=== PATIENT | male | born 1955 | race Caucasian/White ===

== ENCOUNTER 2018-02-18 22:10 | Observation (INO) | payer OTHER ==
[2018-02-18 22:15] VITALS: BMI 29.4
[2018-02-18] MEDS ORDERED: ASPIRIN 81 MG CHEWABLE TABLETS ONE ×2 (22:59→23:01)
[2018-02-18] MEDS ORDERED: ASPIRIN 325 MG ENTERIC COATED TABLET (FP) PO ONE (23:03)
--- NOTE | 2018-02-18 23:10 | PDOC ---
Attending Attestation - HPI HPI: This patient is a 62 year old male with PMHx of HTN, who presents with pleuritic chest pain since 6 pm today. Patient states that his left-sided chest pain began suddenly while at rest, worse with inhalation and radiates to left arm and back (feels dull and achy) when he inhales. He describes it as a burning sensation that has been waxing and waning throughout the day but still persists. He states that his chest pain was initially a 5/10 but is currently a 3/10. He states that he had a heart attack in 2015 in [place] and had a cardiac catheterization. He also reports an episode of blurry vision but states that is has resolved. He states that he took his (2 doses) lisinopril and metoprolol medication but is unsure why his blood pressure is still high right now. He denies diaphoresis. He denies nausea, vomitting. He denies it radiation to stomach. He denies recent travel. He denies h/o PE, DVT, unilateral leg swelling. Denies recent surgeries or period of immobilization. Allergies: NKDA Social Hx: denies smoking, social EtOH use. PCP: Dr. Jacob (in [place]) <Inge Melendrez - Last Filed: 02/18/18 23:35> - Resident Resident Name: Dave Teague - ED Attending Attestation I have performed the following: I have examined & evaluated the patient, The case was reviewed & discussed with the resident, I agree w/resident's findings & plan, Exceptions are as noted - Physicial Exam PE: 02/19/18 01:50 Patient is awake and alert, well-nourished, hypertensive, in mild distress Normocephalic and atraumatic PERRLA, EOMI No JVD CTA RRR; + mild parasternal tenderness to palpation is noted on the left Abdomen soft, nontender, nondistended No lower extremity edema Nonfocal neurologically; No rash - Medical Decision Making 02/19/18 01:51 Patient is 62-year-old male with history of hypertension, CAD (status post stenting in 2015), cocaine use presents to the ER with atraumatic, partially pleuritic left-sided chest pain radiating to the left arm and hypotension; EKG shows no evidence of acute ischemia, normal sign at the rate of 85 is noted. Differential diagnoses includes ACS versus PE versus aortic dissection. We'll consider patient's elevated blood pressure as hypertensive emergency given the chest pain with radiation to the back. Will treat with labetalol IV push. Will obtain CTA to rule out dissection. If no dissection is noted, we'll administer aspirin by mouth and will place on telemetry for observation and serial cardiac enzymes for ACS. <Deon Lemos - Last Filed: 02/19/18 02:16> Heart Score/ECG Review - History History: Moderately suspicious - Electrocardiogram EKG: Normal - Age Age: 45-65 - Risk Factors Risk Factors Heart Score: Yes Hx Hypercholesterolemia, Yes Hx Hypertension, Yes Hx Obesity Based on the list above the patient has:: >/=3 risk factors or Hx atherosclerotic disease - Troponin Troponin: </= normal limit - Score Heart Score - Total: 4 <Deon Lemos - Last Filed: 02/19/18 02:16>
[2018-02-18] MEDS ORDERED: ASPIRIN 325 MG ENTERIC COATED TABLET (FP) ONE (23:28)
[2018-02-18 23:33] LABS: BASO % 0.7 % (0-2.0); EOS % 3.4 % (0-4.5); HEMATOCRIT 40.8 % (35.4-49); HEMOGLOBIN 13.6 GM/dL (11.7-16.9); LYMPH % 31.8 % (8-40); MCH 30.9 pg (25.7-33.7); MCHC 33.4 g/dl (32.0-35.9); MEAN CELL VOLUME 92.5 fl (80-96); MEAN PLT VOLUME 8.2 fl (7.5-11.1); MONO % 9.8 % (3.8-10.2); NEUT % 54.3 % (42.8-82.8); PLATELET COUNT 309 K/MM3 (134-434); RBC 4.41 M/mm3 (4.00-5.60); RDW 13.6 % (11.9-15.9); WHITE BLOOD COUNT 11.5 K/mm3 (4.0-10.0)
[2018-02-18] MEDS ORDERED: LABETALOL HCL 5 MG/1 ML (100MG/20 ML VIAL) IVPUSH ONE (23:39)
[2018-02-18 23:57] LABS: ANION GAP 8 MMOL/L (8-16); BLOOD UREA NITROGEN 19 mg/dL (7-18); CALCIUM 8.6 mg/dL (8.5-10.1); CHLORIDE 105 mmol/L (98-107); CO2 28 mmol/L (21-32); CREATININE 1.2 mg/dL (0.55-1.3); GLUCOSE,RANDOM 103 mg/dL (74-106); POTASSIUM 4.3 mmol/L (3.5-5.1); SODIUM 141 mmol/L (136-145)
[2018-02-18] MEDS ORDERED: LABETALOL HCL 5 MG/1 ML (200MG/40ML VIAL) IVPB ONE ×4 (23:59)
[2018-02-19] MEDS ORDERED: LABETALOL HCL 5 MG/1 ML (100MG/20 ML VIAL) IVPUSH ONE ×2 (00:07→00:56)
--- NOTE | 2018-02-19 00:11 | PDOC ---
History of Present Illness - General Chief Complaint: Chest Pain Stated Complaint: CHEST PAIN Time Seen by Provider: 02/18/18 22:40 History Source: Patient, Family, Old Records Exam Limitations: No Limitations - History of Present Illness Initial Comments: 62 y/o male presenting to [facility] ER via private auto complaining of left sided pleuritic chest pain. Symptoms started spontaneously at approx. 12pm today (18 Feb 2018) while he was at rest. Pain is made worse by deep inspiration; rating 3 /10 upon arrival; radiated into left arm. He states the pain is similar to what he felt with his previous VT in 2014. He attributed the symptoms to hypertension and elected to take 1x metroprolol and 2x lisinopril doses. Pain fluctuate in intensity over the course of the afternoon. He took an additional 1x lisinopril dose at 19:00. Elected to present to the ER after symptoms failed to resolve. Denies recent travel, long periods of immobilization, recent surgery, or leg pain/swelling. Denies trauma to the area. Denies recent illness. H/o VT in 2014. Stent placed at hospital in [place]. ASA and Plavix were discontinued by his development disability specialist last year. Believes he had a normal Echo last year. PCP: Jose Guadalupe Patient Registration Specialist: Cecil Santiago Hx: - Denies ever smoking - Endorses occasional EtOH use, none in last 48 hrs - Denies street drug use Medical Hx: - HTN - CAD, VT 2014 with stent placement Surgical Hx: - Denies previous surgeries Past History - Past Medical History Allergies/Adverse Reactions: Allergies Allergy/AdvReac Type Severity Reaction Status Date / Time No Known Drug Allergies Allergy Verified 02/18/18 22:15 peanut Allergy Verified 02/18/18 22:15 FRUITS Allergy Uncoded 02/18/18 22:15 Home Medications: Ambulatory Orders Aspirin [ASA -] 81 mg PO DAILY 06/16/15 Clopidogrel Bisulfate [Plavix -] 75 mg PO DAILY 06/16/15 Lisinopril 10 mg PO DAILY 06/21/15 Metoprolol Tartrate [Lopressor -] 25 mg PO BID 02/19/18 Anemia: No Asthma: No Cancer: No Cardiac Disorders: Yes (1 STENT INSERTED 11/2014) CVA: No COPD: No CHF: No Dementia: No Diabetes: No GI Disorders: No Disorders: No HTN: Yes Hypercholesterolemia: Yes Liver Disease: No Seizures: No Thyroid Disease: No - Surgical History Cardiac Surgery: Yes (ANGIOPLASTY) - Suicide/Smoking/Psychosocial Hx Smoking History: Never smoked Hx Alcohol Use: No Drug/Substance Use Hx: No Substance Use Type: None Hx Substance Use Treatment: No Cardiac Specific PMH - Complaint Specific PMHX Pacemaker: No Review of Systems - Review of Systems Able to Perform ROS?: Yes Comments:: In addition to that documented in the HPI above, the additional ROS was obtained : Constitutional: Denies fevers or chills Eyes: Endorses resolved episode of blurry vision today ENMT: Denies sore throat CV: Per HPI Resp: Denies SOB GI: Denies vomiting or diarrhea : Denies painful urination MSK: Denies recent trauma Skin: Denies new rashes Neuro: Denies new numbness or tingling or weakness Endocrine: Denies bruising Heme: Denies bleeding disorders *Physical Exam - Vital Signs Last Vital Signs Temp Pulse Resp BP Pulse Ox 97.9 F 72 18 124/86 100 02/19/18 05:58 02/19/18 05:58 02/19/18 05:58 02/19/18 05:58 02/19/18 05:58 - Physical Exam Comments: Constitutional: Well-developed, well-nourished male in no acute distress or obvious discomfort. Found semi-fowlers in hospital bed. Alert and oriented x4. Answered all questions appropriately and completely. Speech was non-labored, non -pressured. HEENT: Normocephalic. No obvious external signs of trauma. Hearing grossly normal. No nasal discharge. Neck is supple, trachea is midline. No JVD. Cardiovascular: Regular rate and regular rhythm. No murmur, rubs, clicks, or gallops. Peripheral pulses: Radial pulses full and equal bilaterally. Respiratory: Breathing unlabored. Equal chest rise and fall. Clear to auscultation bilaterally. No stridor, no wheezing, no rhonchi. Gastrointestinal: abdomen is soft, non-tender, non-distended. Neuro: Alert and oriented. Moving all four extremities spontaneously. Skin/MSK: Warm, dry, and intact. No bruising, rashes, or other lesions. No obvious signs of trauma to chest or back. No subjective tenderness with direct palpation or active and passive range of motion with upper left extremity. Psych: Affect: appropriate. Mood: normal. ED Treatment Course - LABORATORY CBC & Chemistry Diagram: 02/18/18 23:26 02/18/18 23:26 - ADDITIONAL ORDERS Additional order review: Laboratory Results 02/19/18 02/19/18 02/19/18 06:00 03:40 03:40 PT with INR INR PTT (Actin FS) D-Dimer Sodium Potassium Chloride Carbon Dioxide Anion Gap BUN Creatinine Creat Clearance w eGFR Random Glucose Calcium Troponin I < 0.02 Opiates Screen Negative Methadone Screen Negative Barbiturate Screen Negative Phencyclidine Screen Negative Ur Amphetamines Screen Negative MDMA (Ecstasy) Screen Negative Benzodiazepines Screen Negative U Marijuana (THC) Screen Negative Blood Type O POSITIVE Antibody Screen 02/18/18 02/18/18 02/18/18 23:40 23:35 23:35 PT with INR 11.90 INR 1.01 PTT (Actin FS) 25.1 L D-Dimer 483 Sodium Potassium Chloride Carbon Dioxide Anion Gap BUN Creatinine Creat Clearance w eGFR Random Glucose Calcium Troponin I Opiates Screen Methadone Screen Barbiturate Screen Phencyclidine Screen Ur Amphetamines Screen MDMA (Ecstasy) Screen Benzodiazepines Screen U Marijuana (THC) Screen Blood Type O POSITIVE Antibody Screen Negative 02/18/18 23:26 PT with INR INR PTT (Actin FS) D-Dimer Sodium 141 Potassium 4.3 Chloride 105 Carbon Dioxide 28 Anion Gap 8 BUN 19 H Creatinine 1.2 Creat Clearance w eGFR > 60 Random Glucose 103 Calcium 8.6 Troponin I < 0.02 Opiates Screen Methadone Screen Barbiturate Screen Phencyclidine Screen Ur Amphetamines Screen MDMA (Ecstasy) Screen Benzodiazepines Screen U Marijuana (THC) Screen Blood Type Antibody Screen 02/18/18 23:26 RBC 4.41 MCV 92.5 MCHC 33.4 RDW 13.6 MPV 8.2 Neutrophils % 54.3 Lymphocytes % 31.8 Monocytes % 9.8 Eosinophils % 3.4 Basophils % 0.7 - RADIOLOGY Radiology Studies Ordered: Category Date Time Status ABDOMEN/PELVIS CTA W/WO CONTR [CT] Stat CT Scan 02/19/18 01:57 Taken CHEST CTA [CT] Stat CT Scan 02/18/18 23:37 Ordered CHEST PA & LAT [RAD] Stat Radiology 02/19/18 01:00 Ordered Radiograph Interpretation: CT angiogram the chest, abdomen and pelvis with and without contrast Triston Escobar MD wrote on Feb 19, 2018 at 03:22 AM: Referring Physician: BISHOP HARMON Patient Name: TEA GODINEZ THIS IS A PRELIMINARY REPORT FROM [facility] DATE OF SERVICE: 2018-02-19 01:57:53 IMAGES: [id number] EXAM: CT angiogram the chest, abdomen and pelvis with and without contrast HISTORY: Chest pain and hypertension COMPARISON: None. FINDINGS: CT angiogram chest:There is no PE or dissection. Heart size is normal. The trachea and bronchi are patent. There is no pleural or pericardial effusion. The lungs are clear. No fractures identified. CT angiogram abdomen and pelvis:Normal liver, gallbladder, pancreas, spleen, adrenal glands and kidneys. The stomach and abdominal small and large bowel are normal. There is no aortic dissection or aneurysm. There is no significant retroperitoneal lymphadenopathy. Minimal mesenteric panniculitis is likely an incidental finding. The pelvic small and large bowel are normal. The appendix is normal. The urinary bladder is normal. The prostate gland is mildly enlarged. No pelvic free fluid is identified. There is no significant pelvic lymphadenopathy. Tiny fat-containing bilateral inguinal hernias are noted. IMPRESSION: No evidence of acute pathology of the chest, abdomen or pelvis. Mild prostate enlargement. One or more of the following dose reduction techniques were used: automated exposure control, adjustment of the mA and/or kV according to patient size, use of iterative reconstructive technique. THIS DOCUMENT HAS BEEN ELECTRONICALLY SIGNED Alessio Escobar MD 02/19/2018 03:19 EST - Medications Given in the ED: ED Medications Discontinued Medications Generic Name Dose Route Start Last Admin Trade Name Coni PRN Reason Stop Dose Admin Aspirin 325 mg 02/18/18 23:03 02/18/18 23:03 Ecotrin - PO 02/18/18 23:04 325 mg ONCE ONE Administration Labetalol HCl 20 mg 02/18/18 23:39 02/19/18 00:00 Normodyne Injection - IVPUSH 02/18/18 23:40 20 mg ONCE ONE Administration Labetalol HCl 40 mg 02/19/18 00:07 02/19/18 00:26 Normodyne Injection - IVPUSH 02/19/18 00:08 40 mg ONCE ONE Administration Labetalol HCl 40 mg 02/19/18 00:56 02/19/18 01:36 Normodyne Injection - IVPUSH 02/19/18 00:57 40 mg ONCE ONE Administration Medical Decision Making - Medical Decision Making *Reviewed vital signs, nursing notes, and prior visit documentation (if available). 62 y/o male presenting with pleuritic, left sided chest pain with radiation to left arm and back x12 hours. States pain is similar to previous VT. Vitals remarkable for hypertension in setting of reported multiple doses of home antihypertensives over usual dose. Denies illicit drug use. D/D includes but not limited to ACS, PE, aortic dissection, pericardial effusion, pneumonia, esophageal rupture, MSK pain. Will obtain CBC, BMP, Troponin, EKG, Coags, T/S, D -dimer, CXR, CTA of chest, abdomen, and pelvis. Ordered ASA and labetalol. EKG revealed sinus rhythm with a ventricular rate of 85 bpm. Normal axis. Normal intervals. No ST segment elevation or depression. No hyperacute T-waves. 00:23 Pts daughter approached at desk and stated her father does in fact have a history of cocaine use. Believes it is possible he used it today. CTA unremarkable for dissection or PE. Initial troponin not elevated. Low suspicion for ACS. Will repeat EKG and troponin at 3 hour [id number]. Second troponin not elevated. HEART Score for Major Cardiac Events from [email or web address] on 02/19/2018 RESULT SUMMARY: 4 points Moderate Score (4-6 points) Risk of MACE of 12-16.6%. INPUTS: History > 1 = Moderately suspicious EKG > 0 = Normal Age > 1 = 45-64 Risk factors > 2 = ?3 risk factors or history of atherosclerotic disease Initial troponin > 0 = ?normal limit 04:47 Microblog sent to [facility] for admission for chest pain rule out and hypertensive urgency. Suspect symptoms are possibly related to cocaine intoxication. BP trend now 120s-130s systolic. States pain has almost resolved. 05:[address] Lennon and resident Dr. Romero. Will admit pt to telemetry on obs status. CXR and UDS pending. *DC/Admit/Observation/Transfer Diagnosis at time of Disposition: Hypertensive urgency Chest pain Qualifiers: Chest pain type: unspecified Qualified Code(s): R07.9 - Chest pain, unspecified - Discharge Dispostion Condition at time of disposition: Stable Decision to Admit order: Yes Decision to Admit order Date/Time: Decision to Admit Order Category Date Time Status Decision to Admit to Hospital Routine Admission 02/19/18 04:46 Active - Referrals - Patient Instructions - Post Discharge Activity
[2018-02-19 00:14] LABS: INR 1.01 (0.83-1.09); PROTHROMBIN TIME (PATIENT) 11.9 SEC (9.7-13.0)
[2018-02-19 00:17] LABS: ACTIVATED PTT 25.1 SECONDS (25.2-36.5)
--- NOTE | 2018-02-19 05:44 | PN ---
Teaching Attending Note Name of Resident: Heather Michaels ATTENDING PHYSICIAN STATEMENT I saw and evaluated the patient. I reviewed the resident's note and discussed the case with the resident. I agree with the resident's findings and plan as documented. SUBJECTIVE: Patient is a 62 year old man with PMH of HTN, CAD, acute DC in 2014 (got a stent in [place]) presenting with left sided chest pressure that started around noon today while at rest. Pain radiates to the back and left shoulder and made worse by deep breath. No SOB or diaphoresis. His daughter says he took cocaine the day before. He states the pain is similar to what he felt with his previous DC in 2014. He attributed the symptoms to hypertension and elected to take 1x metroprolol and 2x lisinopril doses. Pain fluctuates in intensity over the course of the afternoon. He took an additional 1x lisinopril dose at 19:00. Elected to present to the ER after symptoms failed to resolve. Denies recent travel, long periods of immobilization, recent surgery, or leg pain/swelling. Denies trauma to the area. Denies recent illness. Says ASA and Plavix were discontinued by his medical scheduler last year because of "ecchymosis". He professes compliance with his antihypertensive medications. Says he has gained a lot of weight recently. He is unemployed, lives alone and has 3 adult children. Nonsmoker. On arrival in the ER his systolic BP was >235 and he got 3 doses of IV labetalol. His BP has normalized and he is now pain free. OBJECTIVE: Alert Vital Signs Period Temp Pulse Resp BP Sys/Castro Pulse Ox Last 24 Hr 97.5 F 71-87 18-23 133-206/69-105 99-100 HEENT: No Jaundice, eye redness or discharge, PERRLA, EOMI. Normocephalic, atraumatic. External ears are normal and hearing is grossly intact. No nasal discharge. Neck: Supple, nontender. No palpable adenopathy or thyromegaly. No JVD Chest: Good effort. Clear to auscultation and percussion. Heart: Regular. No S3, rub or murmur Abdomen: Not distended, soft, nontender and no HSM. No rebound or guarding. Normoactive bowel sounds. Ext: Peripheral pulses intact. No leg edema. Skin: Warm and dry. No petechiae, rash or ecchymosis. Neuro: Alert. Oriented x3. CN 2-12 grossly intact. Sensation grossly intact in all four extremities and DTR are symmetric. Home Medications Medication Instructions Recorded Aspirin [ASA -] 81 mg PO DAILY 06/16/15 Clopidogrel Bisulfate [Plavix -] 75 mg PO DAILY 06/16/15 Lisinopril 10 mg PO DAILY 06/21/15 Abnormal Lab Results 02/18/18 02/18/18 02/18/18 23:26 23:26 23:35 WBC 11.5 H PTT (Actin FS) 25.1 L BUN 19 H ASSESSMENT AND PLAN: 1. Chest pain and hypertensive urgency - No acute ST-T wave changes on EKG and CXR is pending. Initial troponin is negative. No evidence of aortic dissection on preliminary reading of abd/pelvic CT. In view of cocaine use and risk factors , will admit to telemetry to rule out ACS. Get ECHO, urine toxicology and restart home antihypertensive drugs. Patient counseled to stop using drugs. Consult medical scheduler to opine on the discontinuation of plavix/aspirin for his stent. Leukocytosis is likely reactive - CXR and UA are pending. 2. DVT prophylaxis - Lovenox 40 mg SQ q 24 hours. 3. Advance directives - Full code
--- NOTE | 2018-02-19 05:47 | HP ---
CHIEF COMPLAINT: Chest pain x 1 day PCP: Jose Guadalupe Art Director: Cecil HISTORY OF PRESENT ILLNESS: Pt is a 62 yo M with PMHx HTN, CAD s/p stent (2014) presenting with L sided chest pain at rest around midnight. Pain is worse with inspiration, radiating to back and L arm, associated with SOB. Pt reports it pain feels similar to previous chest pain when he had his last stent placement in [facility] in 2014. Pain was still present on arrival in the ED. At home, when he had the pain, he decided to take extra doses of his antihypertensive medication, 1x metroprolol and 2x lisinopril doses. With persistence of the pain, he took an additional 1x lisinopril dose at 19:00 after noting his BP to be elevated at 170s. Pt admits cocaine use in the past. Per ED sign out, Pt's daughter reported recent cocaine use the previous day. Patient reports taking multiple doses of lisinopril at his own discretion at home for BP control. Per pt, he was bruising from dual antiplatelets (ASA and Plavix ), so he was discontinued by his physician in the [facility]. Since being in the ED, the pain has since resolved. ER course was notable for: (1) ASA, negative tropsx 2, (2) EKG- 85bpm, NSR, , nl R wave progression, no KARL/STD, QTC-445, nl axis (3) CTA- negative for (4) Initial BP-206/105 (5) ASA, labetalol iv-100mg, Labetalol PO-600mg Recent Travel: PAST MEDICAL HISTORY: As in HPI PAST SURGICAL HISTORY: Cardiac Stent Social History: Smoking: Alcohol:Occasional Drugs: Cocaine Family History: Lives alone, has children Retired construction flagger Allergies No Known Drug Allergies Allergy (Verified 02/18/18 22:15) peanut Allergy (Verified 02/18/18 22:15) FRUITS Allergy (Uncoded 02/18/18 22:15) HOME MEDICATIONS: Home Medications Medication Instructions Recorded Aspirin [ASA -] 81 mg PO DAILY 06/16/15 Clopidogrel Bisulfate [Plavix -] 75 mg PO DAILY 06/16/15 Lisinopril 10 mg PO DAILY 06/21/15 REVIEW OF SYSTEMS CONSTITUTIONAL: Absent: fever, chills, diaphoresis, generalized weakness, malaise, loss of appetite, weight change HEENT: Absent: rhinorrhea, nasal congestion, throat pain, throat swelling, difficulty swallowing, mouth swelling, ear pain, eye pain, visual changes CARDIOVASCULAR: Absent: chest pain, syncope, palpitations, irregular heart rate, lightheadedness , peripheral edema RESPIRATORY: Absent: cough, shortness of breath, dyspnea with exertion, orthopnea, wheezing, stridor, hemoptysis GASTROINTESTINAL: Absent: abdominal pain, abdominal distension, nausea, vomiting, diarrhea, constipation, melena, hematochezia GENITOURINARY: Absent: dysuria, frequency, urgency, hesitancy, hematuria, flank pain, genital pain MUSCULOSKELETAL: Absent: myalgia, arthralgia, joint swelling, back pain, neck pain SKIN: Absent: rash, itching, pallor HEMATOLOGIC/IMMUNOLOGIC: Absent: easy bleeding, easy bruising, lymphadenopathy, frequent infections ENDOCRINE: Absent: unexplained weight gain, unexplained weight loss, heat intolerance, cold intolerance NEUROLOGIC: Absent: headache, focal weakness or paresthesias, dizziness, unsteady gait, seizure, mental status changes, bladder or bowel incontinence PSYCHIATRIC: Absent: anxiety, depression, suicidal or homicidal ideation, hallucinations. PHYSICAL EXAMINATION Vital Signs - 24 hr 02/18/18 02/18/18 02/18/18 22:12 22:59 23:18 Temperature 97.5 F L Pulse Rate 80 Pulse Rate [ 87 86 Left Apical] Respiratory 18 18 23 H Rate Blood Pressure 206/105 H Blood Pressure 203/91 H [Left Arm] Blood Pressure 191/86 H [Right Arm] O2 Sat by Pulse 100 99 99 Oximetry (%) 02/19/18 02/19/18 02/19/18 00:53 01:29 01:34 Temperature Pulse Rate Pulse Rate [ 74 71 77 Left Apical] Respiratory 18 Rate Blood Pressure Blood Pressure 143/76 142/71 133/69 [Left Arm] Blood Pressure [Right Arm] O2 Sat by Pulse 99 Oximetry (%) 02/19/18 01:40 Temperature Pulse Rate Pulse Rate [ 73 Left Apical] Respiratory Rate Blood Pressure Blood Pressure 135/71 [Left Arm] Blood Pressure [Right Arm] O2 Sat by Pulse Oximetry (%) GENERAL: Obese male, Awake, alert, and fully oriented, in no acute distress. HEAD: Normal with no signs of trauma. EYES: Pupils equal, round and reactive to light, extraocular movements intact, sclera anicteric, conjunctiva clear. EARS, NOSE, THROAT: Moist mucous membranes. NECK: Normal range of motion, supple LUNGS: Breath sounds equal, clear to auscultation bilaterally. No wheezes, and no crackles. HEART: Regular rate and rhythm, normal S1 and S2 without murmur, rub or gallop. ABDOMEN: Obese, Soft, nontender, not distended, normoactive bowel sounds, no guarding, no rebound, no masses. MUSCULOSKELETAL: Normal range of motion at all joints. No bony deformities or tenderness. No CVA tenderness. LOWER EXTREMITIES: 2+ pulses, warm, well-perfused. No calf tenderness. No peripheral edema. NEUROLOGICAL: Cranial nerves II-XII intact. Normal speech. Gait not observed CBC, BMP 02/18/18 23:26 02/18/18 23:26 Laboratory Results - last 24 hr 02/18/18 02/18/18 02/18/18 23:26 23:26 23:35 WBC 11.5 H RBC 4.41 Hgb 13.6 Hct 40.8 MCV 92.5 MCH 30.9 MCHC 33.4 RDW 13.6 Plt Count 309 MPV 8.2 Absolute Neuts (auto) 6.2 Neutrophils % 54.3 Lymphocytes % 31.8 Monocytes % 9.8 Eosinophils % 3.4 Basophils % 0.7 Nucleated RBC % 0 PT with INR INR PTT (Actin FS) D-Dimer 483 Sodium 141 Potassium 4.3 Chloride 105 Carbon Dioxide 28 Anion Gap 8 BUN 19 H Creatinine 1.2 Creat Clearance w eGFR > 60 Random Glucose 103 Calcium 8.6 Troponin I < 0.02 Blood Type Antibody Screen 02/18/18 02/18/18 02/19/18 23:35 23:40 03:40 WBC RBC Hgb Hct MCV MCH MCHC RDW Plt Count MPV Absolute Neuts (auto) Neutrophils % Lymphocytes % Monocytes % Eosinophils % Basophils % Nucleated RBC % PT with INR 11.90 INR 1.01 PTT (Actin FS) 25.1 L D-Dimer Sodium Potassium Chloride Carbon Dioxide Anion Gap BUN Creatinine Creat Clearance w eGFR Random Glucose Calcium Troponin I < 0.02 Blood Type O POSITIVE Antibody Screen Negative 02/19/18 03:40 WBC RBC Hgb Hct MCV MCH MCHC RDW Plt Count MPV Absolute Neuts (auto) Neutrophils % Lymphocytes % Monocytes % Eosinophils % Basophils % Nucleated RBC % PT with INR INR PTT (Actin FS) D-Dimer Sodium Potassium Chloride Carbon Dioxide Anion Gap BUN Creatinine Creat Clearance w eGFR Random Glucose Calcium Troponin I Blood Type O POSITIVE Antibody Screen Ambulatory Orders Aspirin [ASA -] 81 mg PO DAILY 06/16/15 Clopidogrel Bisulfate [Plavix -] 75 mg PO DAILY 06/16/15 Lisinopril 10 mg PO DAILY 06/21/15 Metoprolol Tartrate [Lopressor -] 25 mg PO BID 02/19/18 ASSESSMENT/PLAN: Pt is a 62 yo M with PMHx HTN, CAD s/p stent (2014) presenting with L sided chest pain at rest around midnight. Chest pain R/O ACS Previous [place], Hx of cocaine use,negative CTA for PE/ Dissection Trops negative x2, initial EKG, no evidence of ischemia Trend trop, repeat EKG ECHO CXR Cardio consult Tele obs Received ASA in ED Cont ASA daily, Hold metoprolol 25 bid (cocaine use), will continue labetolol (no orders in, monitor BP for hypotension) Resume lisinopril 10 daily when deemed fit by day team Utox Hypertensive Emergency Pt presented with BP-206/105, with chest pain Received multiple PO and iv medications Monitor BP- consider medication review for HTN appears poorly controlled at home Hold metoprolol 25 bid (cocaine use), will continue labetolol (no orders in, monitor BP for hypotension) Resume lisinopril 10 daily when deemed fit by day team CAD s/p stent (2014) Pt has been off antiplatelets unsure of duration Restart ASA, Pt education Hold metoprolol 25 bid (cocaine use), will continue labetolol (no orders in, monitor BP for hypotension) Resume lisinopril 10 daily when deemed fit by day team Lipid profile Statin Obesity Pt reports being off a diet Diet and exercise Leucocytosis Likely reactive CXR pending FEN No standing fluids Monitor lytes, replete as needed Low sodium diet PPx Lovenox sq Dispo: Tele Obs Visit type - Emergency Visit Emergency Visit: Yes ED Registration Date: 02/19/18 Care time: The patient presented to the Emergency Department on the above date and was hospitalized for further evaluation of their emergent condition. - New Patient This patient is new to me today: Yes Date on this admission: 02/19/18 - Critical Care Critical Care patient: No
[2018-02-19 06:37] LABS: METHADONE, UR NEGATIVE ng/ml (CUTOFF=300); OPIATES, URI NEGATIVE ng/ml (CUTOFF=300); PHENCYCLIDINE,URINE NEGATIVE ng/ml (CUTOFF=25); URINE AMPHETAMINES NEGATIVE ng/ml (CUTOFF=500); URINE BARBITURATES NEGATIVE ng/ml (CUTOFF=200); URINE BENZODIAZEPINES NEGATIVE ng/ml (CUTOFF=200)
[2018-02-19 07:06] LABS: COCAINE, UR POSITIVE ng/ml (CUTOFF=300)
--- NOTE | 2018-02-19 08:16 | PN ---
Teaching Attending Note Name of Resident: Aileen Fletcher ATTENDING PHYSICIAN STATEMENT I saw and evaluated the patient. I reviewed the resident's note and discussed the case with the resident. I agree with the resident's findings and plan as documented. SUBJECTIVE: Pt is a 62 yo M with PMHx HTN, CAD s/p stent (2014) presenting with L sided chest pain at rest around midnight last night. Patient is chest pain free now, admitted for using cocaine and developed chest pain. OBJECTIVE: Vital Signs Temperature 97.9 F 02/19/18 05:58 Pulse Rate 72 02/19/18 05:58 Respiratory Rate 18 02/19/18 05:58 Blood Pressure 124/86 02/19/18 05:58 O2 Sat by Pulse Oximetry (%) 100 02/19/18 05:58 GENERAL: Obese male, Awake, alert, and fully oriented, in no acute distress. HEAD: Normal with no signs of trauma. EYES: Pupils equal, round and reactive to light, EOMI , sclera anicteric, conjunctiva clear. EARS, NOSE, THROAT: Moist mucous membranes. NECK: Normal range of motion, supple LUNGS: Breath sounds equal, clear to auscultation bilaterally. No wheezes, and no crackles. HEART: Regular rate and rhythm, normal S1 and S2 without murmur, rub or gallop. ABDOMEN: Obese, Soft, nontender, ND, normoactive bowel sounds, no guarding, no rebound, no masses. EXTREMITIES: 2+ pulses, warm, well-perfused. No calf tenderness. No peripheral edema. NEUROLOGICAL: Cranial nerves II-XII intact. Normal speech. CBCD WBC 11.5 K/mm3 (4.0-10.0) H 02/18/18 23:26 RBC 4.41 M/mm3 (4.00-5.60) 02/18/18 23:26 Hgb 13.6 GM/dL (11.7-16.9) 02/18/18 23:26 Hct 40.8 % (35.4-49) 02/18/18 23:26 MCV 92.5 fl (80-96) 02/18/18 23:26 MCHC 33.4 g/dl (32.0-35.9) 02/18/18 23:26 RDW 13.6 % (11.9-15.9) 02/18/18 23:26 Plt Count 309 K/MM3 (134-434) 02/18/18 23:26 MPV 8.2 fl (7.5-11.1) 02/18/18 23:26 CMP Sodium 141 mmol/L (136-145) 02/18/18 23:26 Potassium 4.3 mmol/L (3.5-5.1) 02/18/18 23:26 Chloride 105 mmol/L (98-107) 02/18/18 23:26 Carbon Dioxide 28 mmol/L (21-32) 02/18/18 23:26 Anion Gap 8 MMOL/L (8-16) 02/18/18 23:26 BUN 19 mg/dL (7-18) H 02/18/18 23:26 Creatinine 1.2 mg/dL (0.55-1.3) 02/18/18 23:26 Creat Clearance w eGFR > 60 (>60) 02/18/18 23:26 Random Glucose 103 mg/dL (74-106) 02/18/18 23:26 Calcium 8.6 mg/dL (8.5-10.1) 02/18/18 23:26 CARDIAC ENZYMES Troponin I < 0.02 ng/ml (0.00-0.05) 02/19/18 06:20 Current Medications Generic Name Dose Route Start Last Admin Trade Name Cesarq PRN Reason Stop Dose Admin Aspirin 81 mg 02/19/18 10:00 Ecotrin - PO DAILY [facility] Atorvastatin Calcium 80 mg 02/19/18 22:00 Lipitor - PO HS [facility] Enoxaparin Sodium 40 mg 02/19/18 10:00 Lovenox - SQ DAILY [facility] Home Medications Medication Instructions Recorded Aspirin [ASA -] 81 mg PO DAILY 06/16/15 Clopidogrel Bisulfate [Plavix -] 75 mg PO DAILY 06/16/15 Lisinopril 10 mg PO DAILY 06/21/15 Metoprolol Tartrate [Lopressor -] 25 mg PO BID 02/19/18 Echocariogram and ECG were normal. ASSESSMENT AND PLAN: Patient is 62 yo Male HTN, with prior [place] in 2014 in [facility]. Patient has cocaine use and last used 2-3 days ago. Patient developed chest pain which exacerbated with deep inspiration without radiation. #acute chest pain , chest pain free now. Patient is cleared by cardiology. 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 As per cardio : chest pain is non-cardiac origin. Negative ECG, Echo and TABBY negative. No further cardiac testing is advised # CAD chronic post FL in 2015. Add ASA 81mg qd, Added Statin and given coccaine use would avoid beta priscila use. will add Norvasc 5mg po now. # HTN resume lisinopril and add norvasc 2.5mg daily. will discharge patient home.
[2018-02-19 08:20] LABS: EOS % 1.6 % (0-4.5); HEMOGLOBIN 12.8 GM/dL (11.7-16.9); MEAN PLT VOLUME 8.4 fl (7.5-11.1); PLATELET COUNT 288 K/MM3 (134-434); RDW 13.5 % (11.9-15.9)
[2018-02-19 08:22] LABS: BASO % 0.8 % (0-2.0); MCH 31.1 pg (25.7-33.7); MCHC 33.7 g/dl (32.0-35.9); MEAN CELL VOLUME 92.2 fl (80-96); MONO % 8.7 % (3.8-10.2); NEUT % 61.9 % (42.8-82.8); RBC 4.12 M/mm3 (4.00-5.60)
[2018-02-19 08:32] LABS: ALBUMIN 2.8 g/dl (3.4-5.0); ALK PHOS 74 U/L (45-117); ANION GAP 10 MMOL/L (8-16); BILIRUBIN,TOTAL 0.4 mg/dL (0.2-1); BLOOD UREA NITROGEN 14 mg/dL (7-18); CALCIUM 7.1 mg/dL (8.5-10.1); CHLORIDE 100 mmol/L (98-107); CHOLESTEROL 149 mg/dL (50-200); CO2 21 mmol/L (21-32); CREATININE 0.8 mg/dL (0.55-1.3); GLUCOSE,RANDOM 92 mg/dL (74-106); HDL CHOLESTEROL 38 mg/dL (40-60); MAGNESIUM 1.9 mg/dL (1.8-2.4); PHOSPHOROUS 2.5 mg/dL (2.5-4.9); POTASSIUM 4.1 mmol/L (3.5-5.1); SGOT/AST 23 U/L (15-37); SGPT/ALT 19 U/L (13-61); SODIUM 131 mmol/L (136-145); TOT PROT 5.9 g/dl (6.4-8.2); TRIGLYCERIDES 103 mg/dL (0-150)
[2018-02-19] MEDS ORDERED: ENOXAPARIN NA (PORCINE) 40 MG/0.4 ML DISP.SYRIN SQ ONE (09:45)
[2018-02-19] MEDS ORDERED: ASPIRIN 81 MG CHEWABLE TABLETS ONE (09:45)
[2018-02-19] MEDS ORDERED: ENOXAPARIN NA (PORCINE) 40 MG/0.4 ML DISP.SYRIN SQ SCH (10:00)
[2018-02-19] MEDS ORDERED: ASPIRIN COATED 81 MG TABLET.EC PO SCH (10:00)
--- NOTE | 2018-02-19 11:08 | EKG ---
Test Reason : Blood Pressure : / mmHG Vent. Rate : 085 BPM Atrial Rate : 085 BPM P-R Int : 184 ms QRS Dur : 094 ms QT Int : 374 ms P-R-T Axes : 014 001 010 degrees QTc Int : 445 ms NORMAL SINUS RHYTHM NORMAL ECG WHEN COMPARED WITH ECG OF 24-JUN-2005 10:32, NO SIGNIFICANT CHANGE WAS FOUND Confirmed by AUGUSTA PRICE MD ([id number]) on 02/19/2018 11:08:26 AM Referred By: Confirmed By:AUGUSTA PRICE MD
--- NOTE | 2018-02-19 11:47 | ECHO ---
Name: KAMINI RODRIGUEZ Exam:Adult Echocardiogram Study Date: 02/19/2018 08:26 AM Age: 62 yrs Reason For Study: Chest pain R/O ACS HX COCAINE USE STENT Height: 70 in Weight: 205 lb BSA: 2.1 m2 MMode/2D Measurements & Calculations IVSd: 0.93 cm Ao root diam: 3.1 cm LVIDd: 4.9 cm LA dimension: 3.4 cm LVIDs: 3.3 cm LVPWd: 0.94 cm EDV(Teich): 113.4 ml ESV(Teich): 43.7 ml Doppler Measurements & Calculations MV E max parvez: 70.6 cm/sec Ao V2 max: 132.8 cm/sec MV A max parvez: 97.7 cm/sec Ao max P.1 mmHg MV E/A: 0.72 MV dec time: 0.19 sec LV V1 max P.3 mmHg TR max parvez: 202.0 cm/sec LV V1 max: 103.7 cm/sec TR max P.3 mmHg Med Peak E' Parvez: 6.8 cm/sec Med E/e': 10.4 Lat Peak E' Parvez: 8.3 cm/sec Lat E/e': 8.5 Procedure A complete two-dimensional transthoracic echocardiogram was performed (2D, M-mode, Doppler and color flow Doppler). Left Ventricle The left ventricular size, thickness and function are normal. The left ventricular ejection fraction is normal. Ejection Fraction = 60-65%. The left ventricular wall motion is normal. Right Ventricle The right ventricle is normal in size and function. Atria Normal left and right atrial size and function. Mitral Valve There is trace mitral regurgitation. Tricuspid Valve No tricuspid regurgitation. There was insufficient TR detected to calculate RV systolic pressure. Aortic Valve The aortic valve is trileaflet. No hemodynamically significant valvular aortic stenosis. No aortic regurgitation is present. Pulmonic Valve There is no pulmonic valvular regurgitation. Great Vessels The aortic root is normal size. Pericardium/Pleura There is no pericardial effusion. Interpretation Summary The left ventricular size, thickness and function are normal The right ventricle is normal in size and function. There is trace mitral regurgitation. MD Perry Roberson 02/19/2018 11:47 AM
--- NOTE | 2018-02-19 15:49 | PN ---
Physical Exam: SUBJECTIVE: Patient seen and examined this morning. Patient reports taking his prescribed doses of Lisinopril 10mg and Metoprolol 25mg BID daily. For the past ~3 days, he has been having elevated BPs at home, approx. 170/90 and he has been using 40 mg Lisinopril and Metoprolol 25mg BID. Additionally he admits to Cocaine use. He also endorses increased stress recently due to family troubles, Money issues and housing. He has not seen his yard engineer in >1 year and his PCP is managing his HTN. He endorses blurry vision and feelings of warmth in his head and upper chest when his BP is elevated. Otherwise denies fevers, chills, SOB, headaches, heart burn, nausea, vomiting. OBJECTIVE: Vital Signs Period Temp Pulse Resp BP Sys/Castro Pulse Ox Last 24 Hr 97.5 F-98.1 F 68-87 17-23 124-206/69-105 97-100 GENERAL: A&Ox3, NAD HEAD: NCAT EYES: PERRL, EOMI ENT: Moist mucous membranes. NECK: No JVD, No carotid bruit LUNGS: CTAB, no wheezes HEART: Regular rate and rhythm, S1, S2 without murmur ABDOMEN: Soft, nontender, nondistended, + bowel sounds, no guarding EXTREMITIES: 2+ pulses, no edema. NEUROLOGICAL: Cranial nerves II through XII grossly intact. Normal speech. SKIN: Warm, dry Laboratory Results - last 24 hr 02/18/18 02/18/18 02/18/18 23:26 23:26 23:35 WBC 11.5 H RBC 4.41 Hgb 13.6 Hct 40.8 MCV 92.5 MCH 30.9 MCHC 33.4 RDW 13.6 Plt Count 309 MPV 8.2 Absolute Neuts (auto) 6.2 Neutrophils % 54.3 Lymphocytes % 31.8 Monocytes % 9.8 Eosinophils % 3.4 Basophils % 0.7 Nucleated RBC % 0 PT with INR INR PTT (Actin FS) D-Dimer 483 Sodium 141 Potassium 4.3 Chloride 105 Carbon Dioxide 28 Anion Gap 8 BUN 19 H Creatinine 1.2 Creat Clearance w eGFR > 60 Random Glucose 103 Calcium 8.6 Phosphorus Magnesium Total Bilirubin AST ALT Alkaline Phosphatase Troponin I < 0.02 Total Protein Albumin Triglycerides Cholesterol Total LDL Cholesterol HDL Cholesterol Opiates Screen Methadone Screen Barbiturate Screen Phencyclidine Screen Ur Amphetamines Screen MDMA (Ecstasy) Screen Benzodiazepines Screen Cocaine Screen U Marijuana (THC) Screen Blood Type Antibody Screen 02/18/18 02/18/18 02/19/18 23:35 23:40 03:40 WBC RBC Hgb Hct MCV MCH MCHC RDW Plt Count MPV Absolute Neuts (auto) Neutrophils % Lymphocytes % Monocytes % Eosinophils % Basophils % Nucleated RBC % PT with INR 11.90 INR 1.01 PTT (Actin FS) 25.1 L D-Dimer Sodium Potassium Chloride Carbon Dioxide Anion Gap BUN Creatinine Creat Clearance w eGFR Random Glucose Calcium Phosphorus Magnesium Total Bilirubin AST ALT Alkaline Phosphatase Troponin I < 0.02 Total Protein Albumin Triglycerides Cholesterol Total LDL Cholesterol HDL Cholesterol Opiates Screen Methadone Screen Barbiturate Screen Phencyclidine Screen Ur Amphetamines Screen MDMA (Ecstasy) Screen Benzodiazepines Screen Cocaine Screen U Marijuana (THC) Screen Blood Type O POSITIVE Antibody Screen Negative 02/19/18 02/19/18 02/19/18 03:40 06:00 06:20 WBC RBC Hgb Hct MCV MCH MCHC RDW Plt Count MPV Absolute Neuts (auto) Neutrophils % Lymphocytes % Monocytes % Eosinophils % Basophils % Nucleated RBC % PT with INR INR PTT (Actin FS) D-Dimer Sodium 131 L Potassium 4.1 Chloride 100 Carbon Dioxide 21 Anion Gap 10 BUN 14 Creatinine 0.8 Creat Clearance w eGFR > 60 Random Glucose 92 Calcium 7.1 L Phosphorus 2.5 Magnesium 1.9 Total Bilirubin 0.4 AST 23 ALT 19 Alkaline Phosphatase 74 Troponin I < 0.02 Total Protein 5.9 L Albumin 2.8 L Triglycerides 103 Cholesterol 149 Total LDL Cholesterol 107 H HDL Cholesterol 38 L Opiates Screen Negative Methadone Screen Negative Barbiturate Screen Negative Phencyclidine Screen Negative Ur Amphetamines Screen Negative MDMA (Ecstasy) Screen Negative Benzodiazepines Screen Negative Cocaine Screen Positive A* U Marijuana (THC) Screen Negative Blood Type O POSITIVE Antibody Screen 02/19/18 08:00 WBC 10.0 RBC 4.12 Hgb 12.8 Hct 38.0 MCV 92.2 MCH 31.1 MCHC 33.7 RDW 13.5 Plt Count 288 MPV 8.4 Absolute Neuts (auto) 6.2 Neutrophils % 61.9 Lymphocytes % 27.0 Monocytes % 8.7 Eosinophils % 1.6 Basophils % 0.8 Nucleated RBC % 0 PT with INR INR PTT (Actin FS) D-Dimer Sodium Potassium Chloride Carbon Dioxide Anion Gap BUN Creatinine Creat Clearance w eGFR Random Glucose Calcium Phosphorus Magnesium Total Bilirubin AST ALT Alkaline Phosphatase Troponin I Total Protein Albumin Triglycerides Cholesterol Total LDL Cholesterol HDL Cholesterol Opiates Screen Methadone Screen Barbiturate Screen Phencyclidine Screen Ur Amphetamines Screen MDMA (Ecstasy) Screen Benzodiazepines Screen Cocaine Screen U Marijuana (THC) Screen Blood Type Antibody Screen Active Medications Aspirin (Ecotrin -) 81 mg PO DAILY [facility] Last Admin: 02/19/18 09:46 Dose: 81 mg Atorvastatin Calcium (Lipitor -) 40 mg PO HS [facility] Enoxaparin Sodium (Lovenox -) 40 mg SQ DAILY [facility] Last Admin: 02/19/18 09:46 Dose: 40 mg IMAGING: -CXR: A single AP view the chest reveals slight rotation to the left, weak inspiration with some congestive changes, fluid in the horizontal fissure and prominent mediastinum. -CT A/P: No evidence of thoracic or abdominal aortic aneurysm or dissection. No evidence of primary embolism. No acute pathology within the chest, abdomen or pelvis. Please see above discussion -EKG: NORMAL SINUS RHYTHM, VR 85, QTc 445 -ECHO: LV Size, thickness and Function are normal, RV is normal in size and function, Trace MR ASSESSMENT/PLAN: 62 y/o M with PMHx of HTN, CAD (s/p stent 2014) present with L sided chest pain and is found to be in Hypertensive Emergency #Chest pain -R/O ACS given hx of previous SC and cocaine use; Less likely PE, Aortic Dissection -Trops <0.02 x 3 -EKG, Echo, CTA Noted above -Cardio (Dr. Rojas) consulted -Continue ASA -Home dose Metoprolol held in the setting of UTox positive for Cocaine use Resume lisinopril 10 daily when deemed fit by day team #Hypertensive Emergency -BP On admission 200/91 accompanied by chest pain -Trended down after multiple doses of Labetalol -Hold home dose Metoprolol, Resume lisinopril #CAD (s/p stent 2014) Pt has been off antiplatelets unsure of duration Restart ASA, Pt education Hold metoprolol 25 bid (cocaine use), will continue labetolol (no orders in, monitor BP for hypotension) Resume lisinopril 10 daily when deemed fit by day team Lipid profile Statin Obesity Pt reports being off a diet Diet and exercise Leucocytosis Likely reactive CXR pending Cholesterol pannel FEN No standing fluids Monitor lytes, replete as needed, Hyponatremia Low sodium diet PPx Lovenox sq Dispo: Tele obs
--- NOTE | 2018-02-19 16:19 | CON.CARD ---
Consult Consult Specialty:: Cardiology Reason for Consultation:: CP - History of Present Illness History of Present Illness: 62 yo M HTN and preior Mi in 2015 in [facility]. He has coccaine use and last used 2-3 days ago. Developed chest pain today exacebated with deep inspiration without radiation. His pain has resolved. TABBY negative Echocariogram and ECG were normal. - History Source History Provided By: Patient Limitations to Obtaining History: No Limitations - Alcohol/Substance Use Hx Alcohol Use: No - Smoking History Smoking history: Never smoked Home Medications - Allergies Allergies/Adverse Reactions: Allergies Allergy/AdvReac Type Severity Reaction Status Date / Time No Known Drug Allergies Allergy Verified 02/18/18 22:15 peanut Allergy Verified 02/18/18 22:15 FRUITS Allergy Uncoded 02/18/18 22:15 - Home Medications Home Medications: Ambulatory Orders Aspirin [ASA -] 81 mg PO DAILY 06/16/15 Clopidogrel Bisulfate [Plavix -] 75 mg PO DAILY 06/16/15 Lisinopril 10 mg PO DAILY 06/21/15 Atorvastatin Ca [Lipitor] 40 mg PO HS 02/19/18 Metoprolol Tartrate [Lopressor -] 25 mg PO BID 02/19/18 Review of Systems - Review of Systems Constitutional: reports: No Symptoms Eyes: reports: No Symptoms HENT: reports: No Symptoms Neck: reports: No Symptoms Cardiovascular: reports: Chest Pain Respiratory: reports: No Symptoms Gastrointestinal: reports: No Symptoms Genitourinary: reports: No Symptoms Musculoskeletal: reports: No Symptoms Vital Signs: Vital Signs Temperature 98 F 02/19/18 15:04 Pulse Rate 70 02/19/18 15:04 Respiratory Rate 18 02/19/18 15:04 Blood Pressure 164/90 02/19/18 15:04 O2 Sat by Pulse Oximetry (%) 98 02/19/18 14:39 Constitutional: Yes: Well Nourished, No Distress, Calm Eyes: Yes: WNL HENT: Yes: Atraumatic, Normocephalic Neck: Yes: Supple, Trachea Midline Respiratory: Yes: Regular, CTA Bilaterally Gastrointestinal: Yes: Normal Bowel Sounds, Soft JVD: No Carotid Bruit: No PMI: Non-Displaced Heart Sounds: Yes: S1, S2 Murmur: No: Systolic Murmur, Diastolic Murmur Edema: No - Other Data Labs, Other Data: CBC, BMP 02/19/18 08:00 02/19/18 06:20 INR, PTT INR 1.01 (0.83-1.09) 02/18/18 23:35 Troponin, BNP 02/18/18 02/19/18 02/19/18 23:26 03:40 06:20 Troponin I < 0.02 < 0.02 < 0.02 Troponin, BNP 02/18/18 02/19/18 02/19/18 23:26 03:40 06:20 Troponin I < 0.02 < 0.02 < 0.02 Laboratory Tests 02/19/18 06:00 Cocaine Screen Positive A* NSR no ST T changes Assessment/Plan 62 yo M HTN and preior Mi in 2014 in [facility]. He has coccaine use and last used 2-3 days ago. Developed chest pain today exacebated with deep inspiration without radiation. His pain has resolved. TABBY negative Echocariogram and ECG were normal. 1. Chest pain Suspect non-cardiac origin. Negative ECG, Echo and TABBY negative. No further cardiac testing is advised 2. CAD chronic post [place] in 2014. Add ASA 81mg qd Add Statin Given coccaine use would avoid beta priscila use. 3. HTN resume lisinopril will see as needed.
[2018-02-19] MEDS ORDERED: LISINOPRIL 10 MG TABLET (FP) PO SCH (16:30)
[2018-02-19] MEDS ORDERED: amLODIPine BESYLATE 5 MG TABLET (FP) PO SCH (16:30)
--- NOTE | 2018-02-19 17:09 | DS ---
Physical Exam: SUBJECTIVE: Patient seen and examined this morning. Patient reports taking his prescribed doses of Lisinopril 10mg and Metoprolol 25mg BID daily. For the past ~3 days, he has been having elevated BPs at home, approx. 170/90 and he has been using 40 mg Lisinopril and Metoprolol 25mg BID. Additionally he admits to extensive Cocaine use. He also endorses increased stress recently due to family troubles, Money issues and housing. 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 He endorses blurry vision and feelings of warmth in his head and upper chest when his BP is elevated. During my interview, he says his blurry vision and chest pressure have resolved. Denies fevers, chills, SOB, headaches, heart burn, nausea, vomiting. OBJECTIVE: Vital Signs Period Temp Pulse Resp BP Sys/Castro Pulse Ox Last 24 Hr 97.5 F-98.1 F 68-87 17-23 124-206/69-105 97-100 PHYSICAL EXAM GENERAL: A&Ox3, NAD HEAD: NCAT EYES: PERRL, EOMI ENT: Moist mucous membranes. NECK: No JVD, No carotid bruit LUNGS: CTAB, no wheezes HEART: Regular rate and rhythm, S1, S2 without murmur ABDOMEN: Soft, nontender, nondistended, + bowel sounds, no guarding EXTREMITIES: 2+ pulses, no edema. NEUROLOGICAL: Cranial nerves II through XII grossly intact. Normal speech. SKIN: Warm, dry LABS Laboratory Last Values WBC 10.0 K/mm3 (4.0-10.0) 02/19/18 08:00 RBC 4.12 M/mm3 (4.00-5.60) 02/19/18 08:00 Hgb 12.8 GM/dL (11.7-16.9) 02/19/18 08:00 Hct 38.0 % (35.4-49) 02/19/18 08:00 MCV 92.2 fl (80-96) 02/19/18 08:00 MCH 31.1 pg (25.7-33.7) 02/19/18 08:00 MCHC 33.7 g/dl (32.0-35.9) 02/19/18 08:00 RDW 13.5 % (11.9-15.9) 02/19/18 08:00 Plt Count 288 K/MM3 (134-434) 02/19/18 08:00 MPV 8.4 fl (7.5-11.1) 02/19/18 08:00 Absolute Neuts (auto) 6.2 K/mm3 (1.5-8.0) 02/19/18 08:00 Neutrophils % 61.9 % (42.8-82.8) 02/19/18 08:00 Lymphocytes % 27.0 % (8-40) 02/19/18 08:00 Monocytes % 8.7 % (3.8-10.2) 02/19/18 08:00 Eosinophils % 1.6 % (0-4.5) 02/19/18 08:00 Basophils % 0.8 % (0-2.0) 02/19/18 08:00 Nucleated RBC % 0 % (0-0) 02/19/18 08:00 PT with INR 11.90 SEC (9.7-13.0) 02/18/18 23:35 INR 1.01 (0.83-1.09) 02/18/18 23:35 PTT (Actin FS) 25.1 SECONDS (25.2-36.5) L 02/18/18 23:35 D-Dimer 483 ng/ml (0-500) 02/18/18 23:35 Sodium 131 mmol/L (136-145) L 02/19/18 06:20 Potassium 4.1 mmol/L (3.5-5.1) 02/19/18 06:20 Chloride 100 mmol/L (98-107) 02/19/18 06:20 Carbon Dioxide 21 mmol/L (21-32) 02/19/18 06:20 Anion Gap 10 MMOL/L (8-16) 02/19/18 06:20 BUN 14 mg/dL (7-18) 02/19/18 06:20 Creatinine 0.8 mg/dL (0.55-1.3) 02/19/18 06:20 Creat Clearance w eGFR > 60 (>60) 02/19/18 06:20 Random Glucose 92 mg/dL (74-106) 02/19/18 06:20 Calcium 7.1 mg/dL (8.5-10.1) L 02/19/18 06:20 Phosphorus 2.5 mg/dL (2.5-4.9) 02/19/18 06:20 Magnesium 1.9 mg/dL (1.8-2.4) 02/19/18 06:20 Total Bilirubin 0.4 mg/dL (0.2-1) 02/19/18 06:20 AST 23 U/L (15-37) 02/19/18 06:20 ALT 19 U/L (13-61) 02/19/18 06:20 Alkaline Phosphatase 74 U/L (45-117) 02/19/18 06:20 Troponin I < 0.02 ng/ml (0.00-0.05) 02/19/18 06:20 Total Protein 5.9 g/dl (6.4-8.2) L 02/19/18 06:20 Albumin 2.8 g/dl (3.4-5.0) L 02/19/18 06:20 Triglycerides 103 mg/dL (0-150) 02/19/18 06:20 Cholesterol 149 mg/dL (50-200) 02/19/18 06:20 Total LDL Cholesterol 107 mg/dL (5-100) H 02/19/18 06:20 HDL Cholesterol 38 mg/dL (40-60) L 02/19/18 06:20 Opiates Screen Negative ng/ml (GINPPA=497) 02/19/18 06:00 Methadone Screen Negative ng/ml (HPGXZN=615) 02/19/18 06:00 Barbiturate Screen Negative ng/ml (QXKCVE=717) 02/19/18 06:00 Phencyclidine Screen Negative ng/ml (CUTOFF=25) 02/19/18 06:00 Ur Amphetamines Screen Negative ng/ml (OOHINE=041) 02/19/18 06:00 MDMA (Ecstasy) Screen Negative ng/ml (RBEPSE=492) 02/19/18 06:00 Benzodiazepines Screen Negative ng/ml (DKTJOU=329) 02/19/18 06:00 Cocaine Screen Positive ng/ml (YNUBZI=194) A* 02/19/18 06:00 U Marijuana (THC) Screen Negative ng/ml (CUTOFF=50) 02/19/18 06:00 Blood Type O POSITIVE 02/19/18 03:40 Antibody Screen Negative 02/18/18 23:40 IMAGING: -CXR: A single AP view the chest reveals slight rotation to the left, weak inspiration with some congestive changes, fluid in the horizontal fissure and prominent mediastinum. -CT A/P: No evidence of thoracic or abdominal aortic aneurysm or dissection. No evidence of primary embolism. No acute pathology within the chest, abdomen or pelvis. Please see above discussion -EKG: NORMAL SINUS RHYTHM, VR 85, QTc 445 -ECHO: LV Size, thickness and Function are normal, RV is normal in size and function, Trace MR HOSPITAL COURSE: Date of Admission:02/19/18 Date of Discharge: 02/19/18 62 y/o M with recent cocaine use was observed for chest pain and Hypertensive Emergency. Trops < 0.02 x 3. EKG, Echo, CTA Noted above. UTox positive for cocaine. Cardiology was consulted, did not suspect the chest pain was cardiac in origin and advised No further cardiac testing. Beta blocked stopped in the setting of cocaine use. Home dose Lisinopril was resumed, he was started on Norvasc and BP improved. Symptoms improved and patient was discharged home. Minutes to complete discharge: 38 Discharge Summary Reason For Visit: HYPERTENSIVE URGENCY,CHEST PAIN Current Active Problems Chest pain (Acute) Hypertensive urgency (Acute) Condition: Improved - Instructions Diet, Activity, Other Instructions: You were admitted to the hospital because you were having extremely high blood pressure and Chest pain. It is very important you STOP USING COCAINE as this can cause Heart attacks, stroke and . Physician Follow ups 1. PCP: Dr. Fletcher at the [facility] in one week, please call to schedule follow up 2. Cardiology: Dr. Tate in 2 weeks, please call his office to schedule follow up Medication Changes 1. STOP using Metoprolol 2. Continue using Lisinopril 10mg Daily 3. Start using Norvasc 5mg Daily 4. Start ASA 81mg Daily 5. Start Lipitor 40mg at Bedtime Please monitor your BP at home and record these numbers. Please bring this to your PCP in one week as you may need to adjust your BP Meds. Please return to the ER if you have any signs or symptoms of chest pain, shortness of breath, uncontrollable fever, chills, nausea, vomiting, numbness, tingling, or weakness in any part of your body, changes in vision, or slurred speech. Please return to the ER if symptoms persist, worsen, or new symptoms arise. Referrals: Td Son MD [Staff Physician] - 1 Week (Please follow up with Dr. Fletcher at the [facility] on Friday at 2pm) Gordy Tate MD [Staff Physician] - 2 Weeks Disposition: HOME - Home Medications Comprehensive Discharge Medication List: Ambulatory Orders Lisinopril 10 mg PO DAILY 06/21/15 Amlodipine Besylate [Norvasc -] 5 mg PO DAILY #30 tablet 02/19/18 Atorvastatin Ca [Lipitor] 40 mg PO HS #30 tablet 02/19/18 This patient is new to me today: Yes Date on this admission: 02/19/18 Emergency Visit: Yes ED Registration Date: 02/19/18 Care time: The patient presented to the Emergency Department on the above date and was hospitalized for further evaluation of their emergent condition. Critical Care patient: No - Discharge Referral Referred to [facility] No
[2018-02-19 17:48] VITALS: BP 150/84; PULSE 72; TEMP 97.8
[2018-02-19] MEDS ORDERED: ATORVASTATIN CA 80 MG TABLET (FP) PO SCH (22:00)
[2018-02-19] MEDS ORDERED: ATORVASTATIN CA 40 MG TABLET (FP) PO SCH (22:00)
== END 2018-02-19 18:43 | disposition home or self-care (01) ==
LOC: JER 22:10 → JERBED 02-19 04:46 → J4W 02-19 14:30
PROVIDERS: ADMIT Internal Medicine; ATTEND Internal Medicine
PROC: 3E033GC Introduction of Other Therapeutic Substance into Peripheral Vein, Percutaneous Approach (ICD-10-PCS; principal; 2018-02-19)
PROC: 3E013GC Introduction of Other Therapeutic Substance into Subcutaneous Tissue, Percutaneous Approach (ICD-10-PCS; 2018-02-19)
DX: I16.0 Hypertensive urgency (principal); R07.9 Chest pain, unspecified; D72.829 Elevated white blood cell count, unspecified; I10 Essential (primary) hypertension; I25.10 Atherosclerotic heart disease of native coronary artery without angina pectoris; E78.5 Hyperlipidemia, unspecified; E66.9 Obesity, unspecified; Z68.29 Body mass index [BMI] 29.0-29.9, adult; Z95.5 Presence of coronary angioplasty implant and graft; Z91.010 Allergy to peanuts
CPT/HCPCS: 36415; 71045-TC-FY; 71275-TC; 74174-TC; 80048; 80053; 80061; 80307; 83721; 83735; 84100; 84484; 85025; 85379; 85610; 85730; 86850; 86900; 86901; 93005; 93010; 93306-TC; 96372; 96374; 96376; 99285-25; G0378

== ENCOUNTER 2024-12-09 14:34 | Emergency (ER) | payer OTHER ==
[2024-12-09 14:43] VITALS: BP 157/71; RESP 20; TEMP 97.7; BMI 27.9
[2024-12-09] MEDS ORDERED: FAMOTIDINE 20 MG TABLET ONE (16:13)
[2024-12-09] MEDS: FAMOTIDINE 20 MG TABLET PO ONE (16:16)
[2024-12-09 16:25] VITALS: PULSE 75
[2024-12-09] MEDS ORDERED: DEXAMETHASONE SOD PHOSPHATE 10 MG/1 ML VIAL ONE ×2 (18:12→18:45)
[2024-12-09] MEDS: DEXAMETHASONE SOD PHOSPHATE 10 MG/1 ML VIAL IM ONE (18:31)
[2024-12-09] MEDS: DEXAMETHASONE SOD PHOSPHATE 10 MG/1 ML VIAL PO ONE (18:48)
== END 2024-12-09 19:00 | disposition home or self-care (01) ==
LOC: JER 14:34
DX: J39.2 Other diseases of pharynx (principal); K14.8 Other diseases of tongue; R21 Rash and other nonspecific skin eruption; L29.9 Pruritus, unspecified; T78.09XA Anaphylactic reaction due to other food products, initial encounter
CPT/HCPCS: 99283-25; J1100

== ENCOUNTER 2024-12-12 08:40 | Inpatient (IN) | payer OTHER ==
[2024-12-12] MEDS ORDERED: ACETAMINOPHEN INJECTION 100 ML ONE (09:37)
[2024-12-12] MEDS: ACETAMINOPHEN 1000 MG/100 ML BAG IVPB ONE (09:51)
[2024-12-12 09:59] LABS: MCHC 31.8 g/dl (32.3-36.5); MEAN CELL VOLUME 89.2 fl (79.0-92.2); MEAN PLT VOLUME 8.7 fl (9.4-12.4); RDW 14.3 % (12.2-16.4)
[2024-12-12 10:32] LABS: GLUCOSE,RANDOM 126.0 mg/dL (74-106)
[2024-12-12 10:33] LABS: TOT PROT 7.0 g/dl (6.4-8.2)
[2024-12-12 10:34] LABS: CO2 25.0 mmol/L (21-32)
[2024-12-12 10:35] LABS: ALK PHOS 85.0 U/L (40-150)
[2024-12-12 10:38] LABS: CREATININE 0.98 mg/dL (0.55-1.3); SGOT/AST 20.0 U/L (5-34); SGPT/ALT 20.0 U/L (0-55)
[2024-12-12 11:54] LABS: URINE APPEARANCE CLEAR; URINE BILIRUBIN NEGATIVE (NEGATIVE); URINE COLOR YELLOW; URINE GLUCOSE (UA) NEGATIVE (NEGATIVE); URINE KETONE NEGATIVE (NEGATIVE); URINE LEUK ESTERASE NEGATIVE (NEGATIVE); URINE NITRITE NEGATIVE (NEGATIVE); URINE PROTEIN NEGATIVE (NEGATIVE); URINE UROBILINOGEN 0.2 mg/dL (0.2-1.0)
[2024-12-12] MEDS: D5-1/2NS+20 MEQ KCL - 20 MEQ/1,000 ML INFUS.BAG IV SCH (13:39)
[2024-12-12 14:21] VITALS: BMI 27.4
[2024-12-12] MEDS: HEPARIN NA (PORCINE) 5,000 UNITS/ML 1ML VIAL SQ SCH (21:51)
[2024-12-12] MEDS: ATORVASTATIN CA 40 MG TABLET (FP) PO SCH (21:51)
[2024-12-13] MEDS ORDERED: MELATONIN 5 MG TABLETS PO PRN (04:10)
[2024-12-13] MEDS: ACETAMINOPHEN 1000 MG/100 ML BAG IVPB ONE (05:59)
[2024-12-13 07:20] LABS: ABSOLUTE IMMATURE GRANULOCYTES 0.22 x10^3/uL (0.0-0.031); BASOPHILS # 0.03 x10^3/uL (0.01-0.08); EOSINOPHIL % 1.0 % (0.8-7.0); EOSINOPHILS # 0.16 x10^3/uL (0.04-0.54); MCHC 32.4 g/dl (32.3-36.5); MEAN CELL VOLUME 88.7 fl (79.0-92.2); MEAN PLT VOLUME 9.2 fl (9.4-12.4); MONOCYTE # 1.27 x10^3/uL (0.30-0.82); MONOCYTE % 8.3 % (5.3-12.2); RDW 13.9 % (12.2-16.4)
[2024-12-13 08:16] LABS: LDL CHOLESTEROL (ONLY SJRH) 100.0 mg/dL (5-100)
[2024-12-13] MEDS: ASPIRIN 81 MG CHEWABLE TABLETS PO SCH (09:59)
[2024-12-13 10:10] LABS: ALK PHOS 69.0 U/L (40-150); CO2 25.0 mmol/L (21-32); CREATININE 0.79 mg/dL (0.55-1.3); GLUCOSE,RANDOM 115.0 mg/dL (74-106); SGOT/AST 15.0 U/L (5-34); SGPT/ALT 13.0 U/L (0-55); TOT PROT 6.1 g/dl (6.4-8.2)
[2024-12-13] MEDS: ACETAMINOPHEN 1000 MG/100 ML BAG IVPB PRN (12:32)
[2024-12-13 12:44] LABS: IRON SERUM 53.0 ug/dL (50-175)
[2024-12-13 12:58] LABS: MCHC 32.3 g/dl (32.3-36.5); MEAN CELL VOLUME 89.7 fl (79.0-92.2); MEAN PLT VOLUME 9.1 fl (9.4-12.4); RDW 14.4 % (12.2-16.4)
[2024-12-13] MEDS: CELECOXIB 200 MG CAPSULE PO SCH (13:16)
[2024-12-14 07:47] LABS: ABSOLUTE IMMATURE GRANULOCYTES 0.17 x10^3/uL (0.0-0.031); BASOPHILS # 0.03 x10^3/uL (0.01-0.08); EOSINOPHIL % 1.8 % (0.8-7.0); EOSINOPHILS # 0.26 x10^3/uL (0.04-0.54); MCHC 32.6 g/dl (32.3-36.5); MEAN CELL VOLUME 89.9 fl (79.0-92.2); MEAN PLT VOLUME 9.0 fl (9.4-12.4); MONOCYTE # 0.97 x10^3/uL (0.30-0.82); MONOCYTE % 6.6 % (5.3-12.2); RDW 14.6 % (12.2-16.4)
[2024-12-14] MEDS: LOSARTAN POTASSIUM 50 MG TABLET PO SCH (10:15)
[2024-12-14] MEDS: ESCITALOPRAM OXALATE 10 MG TABLET PO SCH (10:15)
[2024-12-14] MEDS ORDERED: DEXTROSE 5%-0.45% SALINE 1,000 ML with POTASSIUM CHLORIDE 20 MEQ IV SCH (14:27)
[2024-12-14] MEDS: ACETAMINOPHEN 325 MG TABLET (FP) PO PRN (18:17)
[2024-12-14] MEDS ORDERED: NAPROXEN 500 MG TABLET PO SCH ×2 (22:00)
[2024-12-15 02:19] VITALS: RESP 16
[2024-12-15] MEDS: COLCHICINE 0.6 MG TAB PO SCH (09:13)
[2024-12-15 11:59] VITALS: BP 138/74; PULSE 80; TEMP 97.9
[2024-12-15] MEDS: POTASSIUM CHLORIDE 20 MEQ in DEXTROSE 5%-0.45% SALINE 1,000 ML IV SCH (13:43)
[2024-12-15 20:07] LABS: CYCLIC CITRULLINE PEPTIDE AB 7 units (0-19)
== END 2024-12-15 16:52 | disposition home or self-care (01) | DRG 312 ==
LOC: JER 08:40 → JERBED 12:01 → OBSVTOIN 12:54 → J4S 14:05
PROVIDERS: ADMIT Family Medicine; ATTEND Family Medicine
DX: R55 Syncope and collapse (principal); I10 Essential (primary) hypertension; I25.10 Atherosclerotic heart disease of native coronary artery without angina pectoris; E78.5 Hyperlipidemia, unspecified; M19.90 Unspecified osteoarthritis, unspecified site; D72.829 Elevated white blood cell count, unspecified; R42 Dizziness and giddiness
CPT/HCPCS: 36415; 70450-TC; 71045-TC-FY; 72125-TC; 80053; 80061; 81003; 82728; 83540; 83550; 83735; 84443; 84484; 84550; 85025; 85027; 86038; 86140; 86200; 86431; 86618; 86747; 87040; 87086; 87637-QW; 87799; 93005; 93010; 93306-TC; 95816; 99285-25; G0378

== ENCOUNTER 2024-12-29 07:23 | Emergency (ER) | payer OTHER ==
[2024-12-29 08:01] VITALS: PULSE 69; RESP 17; BMI 25.5
[2024-12-29] MEDS: SODIUM CHLORIDE 500 ML IV STA (08:19)
[2024-12-29 09:56] LABS: ABSOLUTE IMMATURE GRANULOCYTES 0.25 x10^3/uL (0.0-0.031); BASOPHILS # 0.03 x10^3/uL (0.01-0.08); EOSINOPHIL % 0.1 % (0.8-7.0); EOSINOPHILS # 0.02 x10^3/uL (0.04-0.54); MCHC 32.0 g/dl (32.3-36.5); MEAN CELL VOLUME 89.3 fl (79.0-92.2); MEAN PLT VOLUME 10.3 fl (9.4-12.4); MONOCYTE # 0.98 x10^3/uL (0.30-0.82); MONOCYTE % 5.9 % (5.3-12.2); RDW 16.3 % (12.2-16.4)
[2024-12-29 10:15] LABS: GLUCOSE,RANDOM 113.0 mg/dL (74-106); TOT PROT 6.4 g/dl (6.4-8.2)
[2024-12-29 10:16] LABS: CO2 26.0 mmol/L (21-32)
[2024-12-29 10:17] LABS: ALK PHOS 90.0 U/L (40-150)
[2024-12-29 10:20] LABS: CREATININE 0.8 mg/dL (0.55-1.3); SGOT/AST 19.0 U/L (5-34); SGPT/ALT 24.0 U/L (0-55)
[2024-12-29 14:47] VITALS: BP 140/65; TEMP 97.9
== END 2024-12-29 14:53 | disposition home or self-care (01) ==
LOC: JER 07:23
PROC: 3E0337Z Introduction of Electrolytic and Water Balance Substance into Peripheral Vein, Percutaneous Approach (ICD-10-PCS; principal; 2024-12-29)
DX: R55 Syncope and collapse (principal); R42 Dizziness and giddiness
CPT/HCPCS: 36415; 80053; 83735; 84484; 85025; 93005; 93010; 93306-TC; 99284-25